=== PATIENT | female | born 1960 | race Caucasian/White ===

== ENCOUNTER 2017-10-19 08:50 | Day surgery (SDC) | payer OTHER ==
[~2017-10-19] VITALS: Ht 157.5 cm; Wt 101.8 kg
[2017-10-19] VITALS (8 sets, daily range): BP systolic 96–144; BP diastolic 58–89; PULSE 70–90; RESP 16–20; TEMP 97.8–97.9; O2SAT 91–98
[~2017-10-19 08:50] MED LIST: GLUCTAB PO; VENL37.585 PO
[2017-10-19] MEDS ORDERED: DAPA1TAB3 PO (09:06)
[2017-10-19] MEDS ORDERED: EPIP0.3I IM (09:06)
[2017-10-19] MEDS ORDERED: SIMV20TA PO (09:06)
[2017-10-19] MEDS ORDERED: VENL37.5 PO (09:06)
[2017-10-19] MEDS ORDERED: GLIM2TAB PO (09:06)
[2017-10-19] MEDS ORDERED: SODIUM CHLOR 0.9% 1000 ML INJ 1,000 ML IV SCH (09:15)
[2017-10-19] MEDS ORDERED: LIDOCAINE HCL 1% 20 ML VIAL ONE (09:47)
[2017-10-19] MEDS ORDERED: MIDAZOLAM HCL 2 MG/2 ML VIAL ONE (10:03)
--- NOTE | 2017-10-19 14:26 | RADRPT ---
EXAM DATE/TIME: 10/19/2017 10:09 [place] COMPARISON: No previous studies available for comparison. INDICATIONS : Abnormal liver function tests SEDATION TIME: 30 minutes BIOPSY SITE: Liver MEDICATION(S): 1.) 4 mg midazolam (Versed) IV 2.) 100 mcg fentanyl (Sublimaze) IV DEVICE(S): 1.) 18 gauge Temno core biopsy needle MEDICAL HISTORY : Diabetes mellitus type 1. SURGICAL HISTORY : None. ENCOUNTER: Initial ACUITY: 1 day PAIN SCORE: 0/10 LOCATION: Right upper quadrant A total of one core specimen(s) were obtained and sent to the laboratory for pathologic evaluation. PROCEDURE: 1. CT guided liver biopsy. 2. Conscious sedation with continuous EKG and oximetry monitoring. 3. EKG and oximetry remained stable throughout the procedure. Prior to the procedure informed consent was obtained. Any appropriate prior imaging studies were rev iewed. Using automated exposure control and adjustment of the mA and/or kV according to patient size, radiat ion dose was kept as low as reasonably achievable to obtain optimal diagnostic quality images. DICOM format image data is available electronically for review and comparison. The site was prepped in a sterile fashion. Full sterile technique was used, including cap, mask, yamila rile gloves and gown and a large sterile sheet. Hand hygiene and 2% chlorhexidine and/or betadine/al cohol prep was utilized per protocol for cutaneous antisepsis. The skin and subcutaneous tissues wer e infiltrated with local anesthetic solution. With CT guidance the previously identified target was localized. Biopsy was performed using the presc ribed needle as above. Adequate hemostasis was obtained with compression at the puncture site. Follow-up CT scan reveals no hemorrhage. The patient tolerated the procedure well and there were no complications. The patient was returned to the Radiology Outpatient Unit in stable condition. CONCLUSION: Successful CT-guided liver biopsy. Srikanth Manning MD on October 19, 2017 at 14:23 Board Certified Radiologist. This report was verified electronically.
== END 2017-10-19 14:01 | disposition home or self-care (01) ==
LOC: HRAD 08:50 → HRIP 08:53 → HRAD 14:01
PROVIDERS: ATTEND Internal Medicine Gastroenterology
DX: R79.89 Other specified abnormal findings of blood chemistry (principal); E10.8 Type 1 diabetes mellitus with unspecified complications
CPT/HCPCS: 47000; 77012; 88307; 88313; J2250; J3010; J7030